=== PATIENT | male | born 1965 | race African-American/Black ===

== ENCOUNTER 2019-10-01 08:59 | Emergency (ER) | payer BC ==
--- NOTE | 2019-10-01 09:39 | RAD ---
Chest 2 views HISTORY: Cough. There is some: 11/08/2006. FINDINGS: Cardiac silhouette and pulmonary vasculature are unremarkable. Mediastinum is midline. Ther e is no confluent airspace consolidation, pneumothorax, or pleural fluid. Ossification of anterior longitudinal ligament of the thoracic spine on the lateral view is consisten t with diffuse idiopathic skeletal hyperostosis. IMPRESSION: No active cardiopulmonary abnormalities are demonstrated.
== END 2019-10-01 09:50 | disposition home or self-care (01) ==
LOC: ERS 08:59
DX: J18.9 Pneumonia, unspecified organism (principal); I25.10 Atherosclerotic heart disease of native coronary artery without angina pectoris; I25.2 Old myocardial infarction; E78.5 Hyperlipidemia, unspecified; Z79.82 Long term (current) use of aspirin
CPT/HCPCS: 71046

== ENCOUNTER 2021-07-02 09:42 | Emergency (ER) | payer BC ==
[2021-07-02 13:13] LABS: SARS-CoV-2 NAA Rapid Test DETECTED (NotDetected)
== END 2021-07-02 13:00 | disposition home or self-care (01) ==
LOC: ERS 09:42
DX: U07.1 COVID-19 (principal); J00 Acute nasopharyngitis [common cold]; E78.5 Hyperlipidemia, unspecified; I25.2 Old myocardial infarction; Z79.82 Long term (current) use of aspirin; Z79.52 Long term (current) use of systemic steroids; Z79.899 Other long term (current) drug therapy
CPT/HCPCS: 0241U; 87081; 87430; 99283

== ENCOUNTER 2022-11-24 18:24 | Emergency (ER) | payer BC | END 2022-11-24 22:06 | disposition left against medical advice (07) | LOC: ERS 18:24 | DX: Z53.21 Procedure and treatment not carried out due to patient leaving prior to being seen by health care provider (principal) ==